=== PATIENT | male | born 1955 | race Caucasian/White ===

== ENCOUNTER → 2021-07-27 08:16 | Outpatient (CLI) | payer MEDICARE, BC, SELFPAY | PROVIDERS: Visit Provider Internal Medicine Gastroenterology | DX: Z01.812 Encounter for preprocedural laboratory examination (principal); Z20.822 Contact with and (suspected) exposure to COVID-19; Z12.11 Encounter for screening for malignant neoplasm of colon | CPT/HCPCS: U0003 ==

== ENCOUNTER 2021-07-29 08:33 | Day surgery (SDC) | payer MEDICARE, BC, SELFPAY ==
[2021-07-29] VITALS (7 sets, daily range): BP systolic 107–140; BP diastolic 70–80; PULSE 51–65; RESP 16–18; TEMP 36.2–36.8; O2SAT 94–97; BMI 29.1
--- NOTE | 2021-07-29 09:34 | HMH.ANESCL ---
[facility] Anesthesia Checklist - Patient Identification Patient Identification: Arm Band - Structural Data Admitted From: Home Planned Operative Procedure/s: colonoscopy Consent for Planned Operative Procedure(s) Verified: Yes Verified Documents: Surgical Consent, History and Physical - NPO Status Verified Time NPO: 00:00 - Additional verifications Anesthesia Reactions: No - Airway Assessment C-Spine Mobility Assessed: Yes (mp2) TMJ Mobility Assessed: Yes Dentition: Good Dentition - Neurological Assessment Level of Consciousness: Awake, Alert - Anesthesia Plan Anesthesia Risk discussed: Yes Anesthesia Plan: Verified ASA Class: II Anesthesia Type: MAC [facility] History I have reviewed the patient's past medical history: Yes Medical History: Reports:: Asthma, Depression, MRSA (finger) Denies:: Cancer, Diabetes Mellitus Type 1, Diabetes Mellitus Type 2, Internal Pacemaker, Seizures *Have you ever received a pneumonia vaccine?: No *Have you received a flu vaccine this season?: Yes Anesthesia experience/problems:: nac Laterality Cases: Left: Arthroscopy Knee, Bilateral: Arthroscopy Shoulder Other Surgeries: Yes: Hernia Repair, Other. No: Pacemaker Amputation: No Fractures: No - *Social History Last grade of school completed: GED Smoking Status: Never smoker Alcohol Intake: never Substance Use Type: denies use *Occupational Status:: employed Housing: house Household Members: spouse *Travel in the last 8 weeks: None Family Hx:: Cancer, Diabetes, Heart Attack
--- NOTE | 2021-07-29 10:08 | P.PCN_ITS ---
[facility] Procedure Note Procedure Note:: Colonoscopy Procedure Report: Colonoscopy with cold snare polypectomy and hemorrhoid band ligation Endoscopist: John Du II, MD Referring physician: Jaden Shoemaker MD Date of Procedure: July 29, 2021 Equipment: Olympus 190 variable stiffness pediatric colonoscope Sedation: MAC sedation Indication: Mr. Rojas is a 66-year-old gentleman who is here for diagnostic colonoscopy secondary to bright red rectal bleeding. He had a colonoscopy in February 2018 and had a single polyp (tubular adenoma x1) removed. He also had internal hemorrhoids at that time that were banded. The patient's father was diagnosed with colon cancer in his 70s. A CAT scan of the abdomen in November 2019 showed some evidence of colitis with long segment wall thickening and luminal narrowing of the left colon. He was diagnosed with C. difficile and treated. He does report ongoing bright red rectal bleeding that is intermittent but had occurred for nearly a month. This is nonpainful. The patient does have some constipation with incomplete bowel evacuation and excessive wiping. He reports no abdominal pain or weight loss. Procedure: Prior to the procedure, a history and physical exam was performed, and patient's medications and allergies were reviewed. The risks, benefits and alternatives of the sedation and procedure were discussed with the patient. All questions were answered and informed consent was obtained. The patient was brought to the procedure room. Patient identification and proposed procedure were verified by the physician and the nurse. The patient was placed in a left lateral decubitus position and the scope was passed under direct vision. Throughout the procedure, the patient's blood pressure, pulse, and oxygen saturations were monitored continuously. The colonoscopy was accomplished without difficulty. The patient tolerated the procedure well. Findings: On digital rectal examination there was normal rectal tone. There were no external hemorrhoids. The prostate was 2+, smooth, soft, symmetric without nodules. The colonoscope was introduced through the anal canal to the rectum and advanced to the cecum. The ileocecal valve and appendiceal orifice were identified. The scope was advanced a short distance into the ileum which appeared grossly normal. The scope was then withdrawn into the colon. There were 2 colon polyps (cecum x1 (4 mm) and sigmoid x1 (3 mm)) which were both removed via cold snare polypectomy. The remaining cecum, ascending and transverse colon and mucosa were grossly normal. There were a few mildly scattered diverticuli throughout the descending and sigmoid colon (LEFT colon). The rectum itself was normal. Upon retroflexion within the rectum there were grade 2-3 internal hemorrhoids. These remaining columns (3 columns) of internal hemorrhoids were banded using 4 bands with excellent ligation effect. The preparation was excellent throughout with [place] Preparation Score of 9. The cecal time was 12 minutes. Impression: 1. Diminutive colonic polyps x2 2. Mild left-sided diverticulosis 3. Grade 2-3 internal hemorrhoids status post band ligation x4 Plan: The patient continues to have hemorrhoidal disease with large internal hemorrhoids that bleed and sometimes prolapse. It will remain important for him to stay on a bulking fiber supplement on a long-term daily maintenance basis. I will discuss this with the patient and family. I will follow up the polyp histology and if these are adenomatous polyps, I would recommend repeat surveillance colonoscopy again in 7 years.
== END 2021-07-29 11:15 | disposition home or self-care (01) ==
LOC: OUTP 08:36
PROVIDERS: Visit Provider Internal Medicine Gastroenterology
PROC: 0DJD8ZZ Inspection of Lower Intestinal Tract, Via Natural or Artificial Opening Endoscopic (ICD-10-PCS; CPT 45378; principal; 2021-07-29 09:30)
DX: Z86.010 Personal history of colon polyps (principal); Z80.0 Family history of malignant neoplasm of digestive organs; K63.5 Polyp of colon; K57.32 Diverticulitis of large intestine without perforation or abscess without bleeding; K64.1 Second degree hemorrhoids; J45.909 Unspecified asthma, uncomplicated; F32.9 Major depressive disorder, single episode, unspecified; Z86.14 Personal history of Methicillin resistant Staphylococcus aureus infection; Z83.3 Family history of diabetes mellitus; Z82.3 Family history of stroke; Z79.51 Long term (current) use of inhaled steroids; Z79.899 Other long term (current) drug therapy
CPT/HCPCS: 45385; 45398; 88305